=== PATIENT | female | born 1960 | race Asian ===

== ENCOUNTER 2019-07-06 13:49 | Emergency (ER) | payer OTHER ==
[~2019-07-06] VITALS: Ht 154.9 cm; Wt 72.0 kg
[2019-07-06] MEDS ORDERED: FLUORESCEIN SODIUM 1MG/STRIP RIGHTEYE ONE (16:00)
[2019-07-06] MEDS ORDERED: TETRACAINE 0.5% OPHTH DROPS 4ML RIGHTEYE ONE (16:00)
[2019-07-06 17:25] VITALS: BP 138/82
== END 2019-07-06 19:14 | disposition home or self-care (01) ==
LOC: ER 13:49
DX: S05.01XA Injury of conjunctiva and corneal abrasion without foreign body, right eye, initial encounter (principal); H43.391 Other vitreous opacities, right eye; X58.XXXA Exposure to other specified factors, initial encounter; Y93.9 Activity, unspecified; Y92.9 Unspecified place or not applicable
CPT/HCPCS: 99283